=== PATIENT | female | born 1995 | race Caucasian/White ===

== ENCOUNTER 2017-06-30 02:14 | Emergency (ER) | payer OTHER ==
[2017-06-30 04:48] VITALS: BP 166/104
== END 2017-06-30 04:47 | disposition home or self-care (01) ==
LOC: ED 02:14
DX: J36 Peritonsillar abscess (principal); I10 Essential (primary) hypertension
CPT/HCPCS: J1170; J1885; J2001

== ENCOUNTER 2019-04-27 20:01 | Emergency (ER) | payer OTHER ==
[~2019-04-27] VITALS: Ht 162.6 cm; Wt 96.2 kg
[2019-04-27 20:02] VITALS: Ht 162.6 cm; Wt 96.2 kg
[2019-04-27 20:29] LABS: BASOPHIL % 0.6 % (0-2); PLATELET COUNT 241 x10^3mcL (130-400); RED CELL DISTRIBUTION WIDTH 13.5 % (11.5-14.5)
[2019-04-27 20:40] LABS: CALCIUM 8.9 mg/dL (8.5-10.1); CHLORIDE SERUM 100 mmol/L (98-107); CREATININE SERUM 0.7 mg/dL (0.6-1.0); GFR1 > 60 mL/min; GLUCOSE SERUM 98 mg/dL (74-106); POTASSIUM SERUM 3.8 mmol/L (3.5-5.1); SODIUM SERUM 137 mmol/L (136-145)
[2019-04-27 20:45] LABS: ALKALINE PHOSPHATASE 139 U/L (46-116); ALT/SGPT 24 U/L (14-59); AST/SGOT 11 U/L (15-37); BILIRUBIN TOTAL 0.4 mg/dL (0.20-1.00); LIPASE 117 IU/L (73-393); TOTAL PROTEIN, SERUM 7.9 g/dL (6.4-8.2)
[2019-04-27 20:46] LABS: ALBUMIN 3.2 g/dL (3.4-5.0)
[2019-04-27 23:10] VITALS: BP 156/97
== END 2019-04-27 23:10 | disposition home or self-care (01) ==
LOC: ED 20:01
PROVIDERS: Emergency Medicine
DX: J03.90 Acute tonsillitis, unspecified (principal); K29.70 Gastritis, unspecified, without bleeding; I10 Essential (primary) hypertension; E11.9 Type 2 diabetes mellitus without complications
CPT/HCPCS: 36415; Q0092

== ENCOUNTER 2019-09-27 23:44 | Emergency (ER) | payer OTHER ==
[~2019-09-27] VITALS: Ht 162.6 cm; Wt 94.8 kg
[2019-09-27 23:52] VITALS: Ht 162.6 cm; Wt 94.8 kg
[2019-09-28 01:19] LABS: CARBON DIOXIDE 29.5 mmol/L (21-32); CHLORIDE SERUM 103 mmol/L (98-107); CREATININE SERUM 0.9 mg/dL (0.6-1.0); GFR1 > 60 mL/min; GLUCOSE SERUM 142 mg/dL (74-106); POTASSIUM SERUM 3.7 mmol/L (3.5-5.1); SODIUM SERUM 142 mmol/L (136-145)
[2019-09-28 01:24] LABS: ALBUMIN 3.5 g/dL (3.4-5.0); ALKALINE PHOSPHATASE 130 U/L (46-116); ALT/SGPT 23 U/L (14-59); AST/SGOT 14 U/L (15-37); BILIRUBIN TOTAL 0.18 mg/dL (0.20-1.00)
[2019-09-28 01:30] LABS: microscopic required? YES; urine erythrocyte 3+ (NEGATIVE)
[2019-09-28 01:32] LABS: TOTAL PROTEIN, SERUM 8.4 g/dL (6.4-8.2)
[2019-09-28 02:40] VITALS: BP 158/79
== END 2019-09-28 03:20 | disposition home or self-care (01) ==
LOC: ED 23:44
PROVIDERS: Emergency Medicine
DX: N20.0 Calculus of kidney (principal); I10 Essential (primary) hypertension
CPT/HCPCS: J1885; J2270; J2405